=== PATIENT | female | born 1970 | race Caucasian/White ===

== ENCOUNTER 2020-03-29 17:16 | Emergency (ER) | payer SELFPAY ==
[~2020-03-29] VITALS: Ht 162.6 cm; Wt 72.6 kg
[2020-03-29 17:19] VITALS: BP 132/74
--- NOTE | 2020-03-29 17:22 | NUR ---
AMBULATED TO CHAIR C
--- NOTE | 2020-03-29 17:35 | NUR ---
50 Y/O F C/C LEFT ANKLE PAIN X 3 WEEKS. PER PT TWISTED HER ANKLE WITH NO FALL, DENIES HEAD INJURY, OR LOC. PAIN 9/10, PRESSURE BURNING SENSATION. CMS/ROM WNL. NKA. NO HX. NO RX. NO NVD. AMBULATED TO CHAIR C.
--- NOTE | 2020-03-29 17:48 | NUR ---
PT TAKEN TO RAD VIA WHEELCHAIR
--- NOTE | 2020-03-29 18:11 | NUR ---
PT RESTING IN BED
[2020-03-29] MEDS ORDERED: KETOROLAC 60 MG/2 ML VIAL IM ONE (18:20)
[2020-03-29 18:27] VITALS: BP 132/74
--- NOTE | 2020-03-29 18:27 | NUR ---
Patient discharged with v/s stable. Written and verbal after care instructions given and explained. Patient alert, oriented and verbalized understanding of instructions. Ambulatory with steady gait. All questions addressed prior to discharge. ID band removed. Patient advised to follow up with PMD. Rx of NORCO,MOTRIN given. Patient educated on indication of medication including possible reaction and side effects. Opportunity to ask questions provided and answered.
== END 2020-03-29 18:27 | disposition home or self-care (01) ==
LOC: MED 17:16
DX: S90.32XA Contusion of left foot, initial encounter (principal); S90.31XA Contusion of right foot, initial encounter; X50.1XXA Overexertion from prolonged static or awkward postures, initial encounter; Y93.89 Activity, other specified; Y92.89 Other specified places as the place of occurrence of the external cause; Y99.8 Other external cause status
CPT/HCPCS: 73630; 96372; 99283; J1885; Q0092; 99284